=== PATIENT | female | born 1985 ===

== ENCOUNTER 2018-11-18 10:04 | Emergency (ER) | payer OTHER ==
[2018-11-18 10:07] VITALS: BMI 28.8
[2018-11-18 10:17] VITALS: O2SAT 98
[2018-11-18] MEDS ORDERED: Sodium Chloride 0.9% 1,000 ML IV STA (10:38)
--- NOTE | 2018-11-18 11:00 | ED PDOC ---
HPI: Chest Pain Time Seen by Provider: 11/18/18 10:17 Chief Complaint (Nursing): Chest Pain Chief Complaint (Provider): Chest Pain History Per: Patient History/Exam Limitations: no limitations Onset/Duration Of Symptoms: Days (x5) Current Symptoms Are (Timing): Still Present Additional Complaint(s): 33 year old female with medical history of anxiety, depression, and migraine, presents to the emergency department with a complaint of intermittent, left- sided chest pain associated with constant headache that has no alleviating or exacerbating factors for 5 days. She denies any shortness of breath, radiation of pain, cough, nausea, vomiting, fever, or chills. PCP: none provided Past Medical History Reviewed: Historical Data, Nursing Documentation, Vital Signs Vital Signs: Last Vital Signs Temp 98.5 F 11/18/18 10:08 Pulse 88 11/18/18 10:08 Resp 17 11/18/18 10:08 BP 156/73 H 11/18/18 10:08 Pulse Ox 98 11/18/18 10:15 - Medical History PMH: Anxiety, Depression, Migraine - Family History Family History: States: Unknown Family Hx - Allergies Allergies/Adverse Reactions: Allergies Allergy/AdvReac Type Severity Reaction Status Date / Time No Known Allergies Allergy Verified 11/18/18 10:14 Review of Systems ROS Statement: Except As Marked, All Systems Reviewed And Found Negative Constitutional: Negative for: Fever, Chills Cardiovascular: Positive for: Chest Pain (left-sided) Respiratory: Negative for: Cough, Shortness of Breath Gastrointestinal: Negative for: Nausea, Vomiting Neurological: Positive for: Headache Physical Exam - Reviewed Nursing Documentation Reviewed: Yes Vital Signs Reviewed: Yes - Physical Exam Appears: Positive for: Well, Non-toxic, No Acute Distress Head Exam: Positive for: ATRAUMATIC, NORMAL INSPECTION, NORMOCEPHALIC Skin: Positive for: Normal Color Eye Exam: Positive for: Normal appearance, EOMI, PERRL Cardiovascular/Chest: Positive for: Regular Rate, Rhythm, Chest Non Tender Respiratory: Positive for: Normal Breath Sounds. Negative for: Wheezing, Respiratory Distress Gastrointestinal/Abdominal: Positive for: Normal Exam, Soft. Negative for: Tenderness Back: Positive for: Normal Inspection Extremity: Positive for: Normal ROM (upper/lower). Negative for: Pedal Edema, Calf Tenderness Neurological/Psych: Positive for: Awake, Alert, Normal Tone, Oriented - Laboratory Results Result Diagrams: 11/18/18 11:09 11/18/18 11:09 Urine POC: Negative - ECG O2 Sat by Pulse Oximetry: 98 (RA) Pulse Ox Interpretation: Normal Medical Decision Making Medical Decision Making: Time: 1035 Initial Plan: work-up for intermittent chest pain. low suspicion for cardiac ideology. Labs with first troponin and medications for headache initiated. discussed option of outpatient mental health referral with patient who agrees that it would be beneficial for her. * EKG * IV fluids * Reglan IVP * Toradol IVP 1430 Workup unremarkable. PT with improved symptoms and stable vitals. BP improved without intervention. Pt to be discharged with referral for outpatient clinic and [facility]. Scribe Attestation: Documented by Esther Springer, acting as a scribe for Liza Vilchis MD. Provider Scribe Attestation: All medical record entries made by the Scribe were at my direction and personally dictated by me. I have reviewed the chart and agree that the record accurately reflects my personal performance of the history, physical exam, medical decision making, and the department course for this patient. I have also personally directed, reviewed, and agree with the discharge instructions and disposition. Disposition - Clinical Impression Clinical Impression: Atypical chest pain, Anxiety and depression, Hypertension - Disposition Referrals: [facility] [Outside] [facility] [Outside] Disposition: Routine/Home Disposition Time: 14:30 Condition: IMPROVED Instructions: High Blood Pressure in Adults, Depression, Adult (DC), Anxiety, Adult (DC), Chest Pain (DC), Controlling Your Blood Pressure Through Lifestyle Forms: [employer] ([place]) Print Language: FINNISH
[2018-11-18 11:14] LABS: BASO % 0.7 % (0.0-2.0); EOS % 0.3 % (0.0-4.0); HEMOGLOBIN 12.5 g/dL (12.0-16.0); LYMPH # 1.7 K/uL (1.0-4.3); MEAN CELL VOLUME 85.8 fl (81.0-99.0); MEAN CORPUSCULAR HGB CONC 32.6 g/dL (33.0-37.0); MONO # 0.3 K/uL (0.0-0.8); MONO % 6.6 % (0.0-10.0); NEUT # 2.5 K/uL (1.8-7.0); NEUT % 55.4 % (50.0-75.0); NRBC % 0.1 % (0.0-0.0); RBC 4.47 Mil/uL (3.80-5.20); RED CELL DISTRIBUTION WIDTH 16.3 % (11.5-14.5); WHITE BLOOD COUNT 4.5 K/uL (4.8-10.8)
[2018-11-18 11:25] LABS: BLOOD UREA NITROGEN 9 mg/dl (7-17); CALCIUM 9.9 mg/dL (8.4-10.2); GFR NON-AFRICAN AMERICAN > 60
[2018-11-18 15:22] VITALS: BP 150/76; PULSE 78; RESP 20; TEMP 97.6
--- NOTE | 2018-11-19 21:27 | CARD ---
APPROVED REPORT Date of service: 11/18/2018 EKG Measurement Heart [id number] <Conclusion> Normal sinus rhythm Normal Electrocardiogram
== END 2018-11-18 15:23 | disposition home or self-care (01) ==
LOC: H.ER 10:04
DX: R07.9 Chest pain, unspecified (principal); F41.9 Anxiety disorder, unspecified; F32.9 Major depressive disorder, single episode, unspecified; I10 Essential (primary) hypertension
CPT/HCPCS: 80048; 81025; 84484; 85025; 93005; 96374; 96375; 99282; J1885; J2765; J7030